=== PATIENT | female | born 1965 | race Two or more races ===

== ENCOUNTER → 2018-08-29 15:02 | Outpatient (CLI) | payer OTHER | END | disposition home or self-care (01) | LOC: LAB 15:02 | DX: N30.00 Acute cystitis without hematuria (principal) ==

== ENCOUNTER 2020-08-29 01:52 | Emergency (ER) | payer OTHER ==
[~2020-08-29] VITALS: Ht 162.6 cm; Wt 59.0 kg
[2020-08-29] MEDS ORDERED: CARAFATE1 GM PO (04:36)
[2020-08-29] MEDS ORDERED: PEPCID AC20 MG PO (04:36)
[2020-08-29] MEDS ORDERED: ANALPRAM HC 2.530 GM RECTAL (04:37)
== END 2020-08-29 04:44 | disposition home or self-care (01) ==
LOC: ER 01:52
DX: K29.60 Other gastritis without bleeding (principal)

== ENCOUNTER 2024-02-22 20:22 | Emergency (ER) | payer OTHER ==
[~2024-02-22] VITALS: Ht 162.6 cm; Wt 59.0 kg
[~2024-02-22 20:22] MED LIST: ANALPRAM HC 2.530 GM RECTAL; CARAFATE1 GM PO; PEPCID AC20 MG PO
[2024-02-22] MEDS ORDERED: PROAIR RESPICL90 MCG (20:52)
[2024-02-22] MEDS ORDERED: BACLOFEN10 MG (20:52)
[2024-02-22] MEDS ORDERED: LOSARTAN POTASS25 MG PO (20:52)
[2024-02-22] MEDS ORDERED: KETOROLAC TROMETHAMINE 30 MG VIAL IM STA (21:17)
== END 2024-02-22 21:25 | disposition home or self-care (01) ==
LOC: ER 20:23
DX: B02.9 Zoster without complications (principal); R51.9 Headache, unspecified

== ENCOUNTER 2025-08-01 15:03 | Emergency (ER) | payer OTHER ==
[~2025-08-01] VITALS: Ht 162.6 cm; Wt 61.2 kg
[~2025-08-01 15:03] MED LIST changes: +BACLOFEN10 MG; +LOSARTAN POTASS25 MG PO; +PROAIR RESPICL90 MCG
[2025-08-01] MEDS ORDERED: METOCLOPRAMIDE HCL 5 MG/ML VIAL IM STA (17:28)
[2025-08-01] MEDS ORDERED: FAMOtidine 10 MG/ML (4ML VIAL) IV PUSH STA (17:29)
[2025-08-01] MEDS ORDERED: 0.9 % SODIUM CHLORIDE 1,000 ML IV STA (17:29)
[2025-08-01] MEDS ORDERED: HYOSCYAMINE SULFATE 0.125 MG TAB.SUBL SL ONE (17:30)
[2025-08-01 18:11] LABS: BASO % 0.5 % (0.1-1.2); EOS # 0.02 (0.04-0.54); EOS % 0.2 % (0.7-7.0); LYMPH # 1.33 (1.18-3.74); LYMPH % 16.2 % (19.3-53.1); MEAN PLATELET VOLUME 12.10 fl (9.4-12.4); MONO # 0.31 (0.24-0.82); MONO % 3.8 % (4.7-12.5); NEUT # 6.48 (1.56-6.13); NEUT % 79.1 % (34.0-71.1); RED CELL DISTRIBUTION WIDTH 13.8 % (11.6-14.4)
[2025-08-01 18:37] LABS: ALT/SGPT 22.0 U/L (12-78); AST/SGOT 22.0 U/L (15-37); BILIRUBIN TOTAL 0.74 mg/dL (0.3-1.2); BUN CREA RATIO 15.0 (7.0-25.0); CREATININE SERUM 0.8 mg/dL (0.55-1.02); GFR 73.67; GLOBULINA 4.1 G/DL (2.4-3.5); GLUCOSE FASTING 108.0 mg/dL (65-100); OSMOLALITY SERUM 287.0 MOSM/KG (275-295)
== END 2025-08-01 20:50 | disposition home or self-care (01) ==
LOC: ER 15:03
DX: K52.9 Noninfective gastroenteritis and colitis, unspecified (principal)
CPT/HCPCS: 36415; 96365; 96372; 99282; J2765; J3490

== ENCOUNTER 2025-08-02 10:51 | Emergency (ER) | payer OTHER ==
[~2025-08-02] VITALS: Ht 162.6 cm; Wt 61.2 kg
[2025-08-02] MEDS ORDERED: MECLIZINE HCL 25 MG TABLET PO ONE (12:15)
[2025-08-02 12:26] LABS: BASO % 0.4 % (0.1-1.2); EOS # 0.04 (0.04-0.54); EOS % 0.6 % (0.7-7.0); LYMPH # 1.42 (1.18-3.74); LYMPH % 20.5 % (19.3-53.1); MEAN PLATELET VOLUME 11.90 fl (9.4-12.4); MONO # 0.31 (0.24-0.82); MONO % 4.5 % (4.7-12.5); NEUT # 5.10 (1.56-6.13); NEUT % 73.7 % (34.0-71.1); RED CELL DISTRIBUTION WIDTH 13.9 % (11.6-14.4)
[2025-08-02 12:50] LABS: BUN CREA RATIO 14.0 (7.0-25.0); CREATININE SERUM 0.83 mg/dL (0.55-1.02); GFR 70.61; GLUCOSE FASTING 108.0 mg/dL (65-100); OSMOLALITY SERUM 289.0 MOSM/KG (275-295)
== END 2025-08-02 19:16 | disposition home or self-care (01) ==
LOC: ER 10:51
PROVIDERS: Emergency Medicine
DX: J01.00 Acute maxillary sinusitis, unspecified (principal); R42 Dizziness and giddiness; I10 Essential (primary) hypertension